=== PATIENT | female | born 1995 | race Caucasian/White ===

== ENCOUNTER 2018-02-04 14:24 | Emergency (ER) | payer OTHER ==
[2018-02-04] MEDS: IBUPROFEN 200 MG TAB PO (15:19)
== END 2018-02-04 16:02 | disposition home or self-care (01) ==
LOC: FTE 14:24
DX: R07.89 Other chest pain (principal)
CPT/HCPCS: 99283-25; Z7502

== ENCOUNTER 2019-04-14 14:07 | Emergency (ER) | payer OTHER ==
[2019-04-14] MEDS: SOD CHLORIDE 0.9% 1,000 ML IV (15:35)
[2019-04-14] MEDS: LORAZEPAM 2 MG INJ IV (15:37)
[2019-04-14] MEDS: ONDANSETRON 4 MG INJ IV ×2 (15:38→18:34)
[2019-04-14] MEDS: FAMOTIDINE 20 MG INJ IV (15:38)
[2019-04-14 15:39] LABS: ADD MAN DIFF? NO
[2019-04-14 15:44] LABS: BASOPHILS % 0.4 % (0.0-2.0); EOSINOPHILS % 0.1 % (0.0-7.0); HEMATOCRIT 38.7 % (37.0-47.0); HEMOGLOBIN 13.2 g/dl (12.0-16.0); LYMPHOCYTES # 1.6 10^3/ul (0.8-2.9); LYMPHOCYTES % 13.7 % (15.0-51.0); MEAN CORPUSCULAR HEMOGLOBIN 30.1 pg (29.0-33.0); MEAN CORPUSCULAR HGB CONC 34.1 g/dl (32.0-37.0); MEAN CORPUSCULAR VOLUME 88.2 fl (82.0-101.0); MEAN PLATELET VOLUME 9.3 fl (7.4-10.4); MONOCYTE # 0.4 10^3/ul (0.3-0.9); MONOCYTES % 3.7 % (0.0-11.0); NEUTROPHIL # 9.3 10^3/ul (1.6-7.5); NEUTROPHILS % 81.8 % (39.0-77.0); PLATELET COUNT 319 10^3/UL (140-415); RED BLOOD COUNT 4.39 10^6/ul (4.20-5.40); RED CELL DISTRIBUTION WIDTH 12.7 % (11.5-14.5)
[2019-04-14 15:44] LABS: WHITE BLOOD COUNT 11.4 10^3/ul (4.8-10.8)
[2019-04-14 15:56] LABS: INR 0.92; PROTIME 12.5 Sec (11.9-14.9)
[2019-04-14 15:57] LABS: PARTIAL THROMBOPLASTIN TIME 28.7 Sec (23.0-35.0)
[2019-04-14 15:58] LABS: ADD UMIC YES; UR ASCORBIC ACID NEGATIVE (NEGATIVE); UR BACTERIA FEW /HPF (NONE SEEN); UR BILIRUBIN (Dip) NEGATIVE (NEGATIVE); UR BLOOD (Dip) 2+ mg/dL (NEGATIVE); UR CLARITY SLIGHTLY CLOUDY (CLEAR); UR COLOR YELLOW (YELLOW); UR GLUCOSE (Dip) NEGATIVE (NEGATIVE); UR KETONES (Dip) 1+ mg/dL (NEGATIVE); UR LEUKOCYTE ESTERASE (Dip) NEGATIVE Leu/ul (NEGATIVE); UR MUCUS MANY /HPF (NONE SEEN); UR NITRITE (Dip) NEGATIVE (NEGATIVE); UR RBC 7 /HPF (0-5); UR SPECIFIC GRAVITY (Dip) 1.024 (1.003-1.030); UR SQUAMOUS EPITHELIAL CELL MODERATE /HPF (FEW); UR TOTAL PROTEIN (Dip) NEGATIVE (NEGATIVE); UR UROBILINOGEN (Dip) NEGATIVE (NEGATIVE); UR WBC 4 /HPF (0-5)
[2019-04-14 16:03] LABS: AMYLASE 75 U/L (11-123)
[2019-04-14 16:03] LABS: LIPASE 58 U/L (23-300)
[2019-04-14 16:05] LABS: ALANINE AMINOTRANSFERASE 66 IU/L (13-69); ALBUMIN 4.8 g/dl (3.3-4.9); ALKALINE PHOSPHATASE 68 IU/L (42-121); ANION GAP 14 (5-13); ASPARTATE AMINO TRANSFERASE 42 IU/L (15-46); BLOOD UREA NITROGEN 9 mg/dl (7-20); CALCIUM 10.1 mg/dl (8.4-10.2); CARBON DIOXIDE 20 mmol/L (21-31); CHLORIDE 107 mmol/L (97-110); CREATINE KINASE 70 IU/L (23-200); CREATININE 0.53 mg/dl (0.44-1.00); Estimated GFR > 60 mL/min (>60); GLUCOSE 109 mg/dl (70-220); POTASSIUM 3.6 mmol/L (3.5-5.1); SODIUM 141 mmol/L (135-144); TOTAL PROTEIN 7.8 g/dl (6.1-8.1)
[2019-04-14 16:14] LABS: CK INDEX 0.6; CK-MB 0.42 ng/ml (0.0-2.4)
[2019-04-14 16:31] LABS: AMPHETAMINE/METHAMPHETAMINE Negative (NEGATIVE); BARBITURATES Negative (NEGATIVE); BENZODIAZEPINES Negative (NEGATIVE); CANNABINOIDS Negative (NEGATIVE); COCAINE Negative (NEGATIVE); OPIATES Negative (NEGATIVE)
[2019-04-14 16:45] LABS: TROPONIN-I < 0.012 ng/ml (0.000-0.120)
[2019-04-14 16:50] LABS: T3 UPTAKE 33.1 % (23.5-40.5); T4 (THYROXINE) 13.3 ug/dl (5.5-11.0)
[2019-04-14 16:53] LABS: ETHANOL < 10.0 mg/dl (0-0)
[2019-04-14 17:39] LABS: THYROID STIMULATING HORMONE 0.509 MIU/L (0.465-4.680)
[2019-04-14] MEDS: KETOROLAC 30 MG INJ IV (18:34)
== END 2019-04-14 18:55 | disposition home or self-care (01) ==
LOC: FTE 14:07 → E/R 18:55
DX: F41.1 Generalized anxiety disorder (principal); R51 Headache; R40.2142 Coma scale, eyes open, spontaneous, at arrival to emergency department; R40.2252 Coma scale, best verbal response, oriented, at arrival to emergency department; R40.2362 Coma scale, best motor response, obeys commands, at arrival to emergency department
CPT/HCPCS: 70450; 71045; 80053; 80307; 81001; 82150; 82550; 82553; 83690; 84436; 84443; 84479; 84484; 84703; 85025; 85610; 85730; 93005; 96374; 96375; 96376; 99285-25

== ENCOUNTER 2019-04-18 04:56 | Emergency (ER) | payer OTHER ==
[2019-04-18] MEDS ORDERED: LORAZEPAM 2 MG INJ IV (05:30)
[2019-04-18] MEDS: KETOROLAC 60 MG INJ IM (05:47)
[2019-04-18] MEDS: SOD CHLORIDE 0.9% 1,000 ML IV (05:47)
[2019-04-18] MEDS: METOCLOPRAMIDE 10 MG INJ IV (05:48)
[2019-04-18] MEDS: DIPHENHYDRAMINE 50 MG INJ IV (05:48)
[2019-04-18] MEDS: SUMATRIPTAN 6 MG/0.5 ML INJ SC (06:51)
== END 2019-04-18 07:18 | disposition home or self-care (01) ==
LOC: FTE 04:56
DX: G43.909 Migraine, unspecified, not intractable, without status migrainosus (principal)
CPT/HCPCS: 81025; 96372; 96374; 96375; 99284-25